=== PATIENT | male | born 1965 | race Caucasian/White ===

== ENCOUNTER 2024-12-18 20:37 | Emergency (ER) | payer OTHER ==
--- NOTE | 2024-12-18 21:09 | ERPHSYRPT ---
- History of Present Illness Source: patient Exam Limitations: no limitations Physician History: Patient is 6 days postop. He has been on oxycodone since then. He has not had a bowel movement yet. He says that he is not really hurting but he is just worried because he was afraid that constipation can cause sepsis. He has tried Ex-Lax and MiraLAX. He is also had some stool softeners. Nothing seems to be helping.He is not having a lot of postop pain or if he is not as well-controlled with his oxycodone.He is not having difficulty urinating. He still has a appetite but sometimes when he eats he gets pretty nauseated so he is eaten a little bit less. Nothing really seems to help the symptoms. Nothing seems to make it worse. Allergies/Adverse Reactions: Penicillins Allergy (Verified 12/18/24 20:46) Anaphylactic Reaction Home Medications: ALPRAZolam 0.25 MG [xanAX 0.25 MG] 0.25 mg PO DAILY PRN 12/18/24 [History] Aspirin EC 81 mg [Ecotrin 81 mg] 81 mg PO DAILY 12/18/24 [History] Atorvastatin Calcium 80 mg PO DAILY 12/18/24 [History] Cholecalciferol (Vitamin D3) [Vitamin D3] 125 mcg PO DAILY 12/18/24 [History] Ezetimibe 10 mg [Zetia 10 MG] 10 mg PO DAILY 12/18/24 [History] Famotidine 20 mg [Pepcid 20 MG] 20 mg PO DAILY 12/18/24 [History] Gabapentin 600 mg PO TID 12/18/24 [History] Losartan Potassium 50 mg [Cozaar 50 MG] 50 mg PO DAILY 12/18/24 [History] Methocarbamol [Robaxin] 1 tab PO Q6HPRN PRN 12/18/24 [History] Oxycodone / APAP 10/325 mg [Oxycodone-Acetaminophen 10-325] 1 tab PO Q4HPRN PRN 12/18/24 [History] Sertraline HCl 50 mg [Zoloft 50 mg Tablet] 50 mg PO DAILY 12/18/24 [History] Trazodone HCl 50 mg [Desyrel 50 mg] 50 mg PO HS 12/18/24 [History] - Review of Systems Constitutional: No Symptoms Eyes: No Symptoms Ears, Nose, & Throat: No Symptoms Abdominal/Gastrointestinal: Constipation Genitourinary Symptoms: No Symptoms All Other Systems: Reviewed and Negative - Nursing Vital Signs Nursing Vital Signs: Initial Vital Signs Pulse Rate 99 H 12/18/24 21:00 Blood Pressure 103/65 12/18/24 21:00 O2 Sat by Pulse Oximetry 97 12/18/24 21:00 Pain Scale Pain Intensity 0 - Physical Exam General Appearance: no apparent distress Eye Exam: PERRL/EOMI Respiratory Exam: normal breath sounds, lungs clear, No chest tenderness Cardiovascular Exam: regular rate/rhythm, normal heart sounds Gastrointestinal/Abdomen Exam: other (Patient's abdomen seems a little bit distended is not rigid. It may be a little bit firm. I asked him if it is usually is and he did not know. He is still having flatus.His bowel sounds are pretty much normal maybe little bit hyperactive.) Neurologic Exam: alert, oriented x 3 Skin Exam: warm, other (Patient's skin appeared a little bit to have a yellowish hue.) - Course Nursing assessment & vital signs reviewed: Yes Ordered Tests: Active Orders 24 hr Category Date Time Status Enema STAT Care 12/18/24 22:52 Active KUB Stat Exams 12/18/24 21:05 Taken CBC W DIFF Stat Lab 12/18/24 21:47 Completed CMP Stat Lab 12/18/24 21:47 Completed Lactic Acid Stat Lab 12/18/24 21:40 Completed Lab/Rad Data: Laboratory Result Diagrams 12/18/24 21:47 12/18/24 21:47 Laboratory Results 12/18/24 12/18/24 12/18/24 Range/Units 21:47 21:47 21:40 WBC 9.9 H (4.23-9.07) x10^3/uL RBC 3.96 L (4.63-6.08) x10^6/uL Hgb 11.1 L (13.7-17.5) g/dL Hct 34.3 L (40.1-51.0) % MCV 86.6 (79.0-92.2) fL MCH 28.0 (25.7-32.2) pg MCHC 32.4 (32.3-36.5) g/dL RDW 14.6 H (11.6-14.4) % Plt Count 321 (163-337) x10^3/uL MPV 9.9 (9.4-12.4) fL Gran % 69.3 H (34.0-67.9) % Immature Gran % (Auto) 0.5 H (0.001-0.429) % Nucleat RBC Rel Count 0.0 (0.00-0.2) % Eos # (Auto) 0.18 (0.04-0.54) x10^3/uL Immature Gran # (Auto) 0.05 H (0.001-0.031) x10^3u/L Absolute Lymphs (auto) 1.95 (1.32-3.57) x10^3/uL Absolute Monos (auto) 0.82 (0.30-0.82) x10^3/uL Absolute Nucleated RBC 0.00 (0.00-0.012) x10^3u/L Lymphocytes % 19.7 L (21.8-53.1) % Monocytes % 8.3 (5.3-12.2) % Eosinophils % 1.8 (0.8-7.0) % Basophils % 0.4 (0.2-1.2) % Absolute Granulocytes 6.84 H (1.78-5.38) x10^3/uL Basophils # 0.04 (0.01-0.08) x10^3/uL Sodium 139 (135-145) mmol/L Potassium 3.9 (3.5-5.1) mmol/L Chloride 102 (98-107) mmol/L Carbon Dioxide 27 (22-30) mmol/L Anion Gap 14.4 (5-15) MEQ/L BUN 17 (9-20) mg/dL Creatinine 1.12 (0.66-1.25) mg/dL Estimated GFR 76.2 ML/MIN Glucose 126 H (74-106) mg/dL Lactic Acid 1.2 (0.4-2.0) Calcium 9.4 (8.4-10.2) mg/dL Total Bilirubin 0.80 (0.2-1.3) mg/dL AST 39 (17-59) U/L ALT 33 (0-50) U/L Alkaline Phosphatase 109 (38-126) U/L Serum Total Protein 7.4 (6.3-8.2) g/dL Albumin 4.2 (3.5-5.0) g/dL - Progress Progress: improved Progress Note: Patient's labs all look good. His x-ray showed stool burden. We are going to try giving him a enema.We did a mineral oil enema on him and he had a bowel movement. 12/18/24 22:53 12/18/24 23:38 - Departure Departure Disposition: Home Clinical Impression: Constipation Condition: Stable Critical Care Time: No Referrals: [facility] [Primary Care Provider] - Follow up/PCP as directed Instructions: Constipation, Adult (DC)
[2024-12-18 21:18] VITALS: RESP 18; TEMP 98.2
[2024-12-18 21:48] LABS: Absolute Neutrophil Ct (ANC) 6.84 x10^3/uL (1.78-5.38); BASOPHIL % 0.4 % (0.2-1.2); Basophil (Absolute #) 0.04 x10^3/uL (0.01-0.08); Eosinophil % 1.8 % (0.8-7.0); Eosinophil (Absolute #) 0.18 x10^3/uL (0.04-0.54); Hematocrit 34.3 % (40.1-51.0); Hemoglobin 11.1 g/dL (13.7-17.5); IMMATURE GRAN # 0.05 x10^3u/L (0.001-0.031); IMMATURE GRAN % 0.5 % (0.001-0.429); Lymphocyte (Absolute #) 1.95 x10^3/uL (1.32-3.57); Lymphocytes % 19.7 % (21.8-53.1); Mean Cell Volume 86.6 fL (79.0-92.2); Mean Corpuscular Hgb Concent. 32.4 g/dL (32.3-36.5); Mean Platelet Volume 9.9 fL (9.4-12.4); Monocyte (Absolute #) 0.82 x10^3/uL (0.30-0.82); Monocytes % 8.3 % (5.3-12.2); Neutrophil % 69.3 % (34.0-67.9); Platelet Count 321 x10^3/uL (163-337); Red Blood Count 3.96 x10^6/uL (4.63-6.08); Red Cell Distribution Width 14.6 % (11.6-14.4); White Blood Count 9.9 x10^3/uL (4.23-9.07)
[2024-12-18 22:00] LABS: ALBUMIN 4.2 g/dL (3.5-5.0); ANION GAP 14.4 MEQ/L (5-15); BILIRUBIN,TOTAL 0.8 mg/dL (0.2-1.3); Calcium 9.4 mg/dL (8.4-10.2); Creatinine 1 1.12 mg/dL (0.66-1.25); EST GLOMERULAR FILTRATION RATE 76.2 ML/MIN; Potassium 3.9 mmol/L (3.5-5.1); Total Protein 7.4 g/dL (6.3-8.2)
[2024-12-18 23:05] VITALS: BP 127/88; PULSE 83; O2SAT 98
--- NOTE | 2024-12-19 08:22 | XRAY ---
Indication: Constipation. Comparison: None KUB nonacute and nonobstructed with minimal/mild scattered colonic fecal debris and aortobiiliac stents. Solid organs unremarkable. Osseous structures intact with osteopenia and L5-S1 fusion hardware.
== END 2024-12-18 23:51 | disposition home or self-care (01) ==
LOC: ED 20:37
DX: K59.00 Constipation, unspecified (principal); Z79.891 Long term (current) use of opiate analgesic; Z79.899 Other long term (current) drug therapy
CPT/HCPCS: 36415; 74018; 80053; 83605; 85025; 99283; 99284